=== PATIENT | male | born 1995 | race Caucasian/White ===

== ENCOUNTER 2022-09-02 12:26 | Emergency (ER) | payer BC ==
[2022-09-02] MEDS ORDERED: Lidocaine 1% 5 ML VIAL INJECT ONE (13:29)
[2022-09-02] MEDS ORDERED: Diphtheria,Pertussis(Acell),Tetanus Vaccine 0.5 ML Syringe IM ONE (13:30)
[2022-09-02] MEDS ORDERED: Bacitracin Oint 1 GM U/D Packet TOP ONE (13:52)
== END 2022-09-02 14:18 | disposition home or self-care (01) ==
LOC: LL.ED 12:26
DX: S61.411A Laceration without foreign body of right hand, initial encounter (principal); F17.290 Nicotine dependence, other tobacco product, uncomplicated; Z23 Encounter for immunization; W27.0XXA Contact with workbench tool, initial encounter
CPT/HCPCS: 12001; 90471; 90715; 99282; J3490

== ENCOUNTER 2023-04-26 22:58 | Emergency (ER) | payer BC ==
[2023-04-26 23:54] LABS: BASOPHILS ABSOLUTE AUTO 0.04 K/uL (0.00-0.20); BASOPHILS PERCENT AUTO 0.4 % (0.0-2.0); EOSINOPHILS ABSOLUTE AUTO 0.06 K/uL (0.00-0.50); EOSINOPHILS PERCENT AUTO 0.6 % (0.0-5.0); HEMATOCRIT 45.5 % (39.0-49.0); HEMOGLOBIN 15.2 g/dL (13.1-16.8); LYMPHOCYTES PERCENT AUTO 18.1 % (10.0-50.0); MEAN CORPUSCULAR HEMOGLOBIN 30.8 pg (28.2-33.3); MEAN CORPUSCULAR HGB CONC 33.4 g/dL (31.7-36.0); MEAN CORPUSCULAR VOLUME 92.1 fL (84.0-98.0); MONOCYTES ABSOLUTE AUTO 0.51 K/uL (0.00-1.00); MONOCYTES PERCENT AUTO 5.1 % (2.0-14.0); NEUTROPHILS ABSOLUTE AUTO 7.53 K/uL (1.40-7.00); NEUTROPHILS PERCENT AUTO 75.8 % (45.0-80.0); PLATELET COUNT,PLT 299 K/uL (150-350); RED BLOOD CELL COUNT 4.94 M/uL (4.33-5.41); RED CELL DISTRIBUTION WIDTH 12.7 % (11.2-14.1); WHITE BLOOD CELL COUNT,WBC 9.9 K/uL (4.0-10.2)
[2023-04-27 00:14] LABS: ALANINE AMINOTRANSFERASE,ALT 41 U/L (12-78); ALBUMIN 4.1 g/dL (3.4-5.0); ALKALINE PHOSPHATASE 79 IU/L (46-116); ASPARTATE AMNIOTRANSFERASE,AST 23 U/L (15-37); BILIRUBIN TOTAL 0.3 mg/dL (0.2-1.0); BLOOD UREA NITROGEN,BUN 8 mg/dL (7-18); CALCIUM 8.8 mg/dL (8.5-10.1); CHLORIDE,CL 107 mmol/L (98-107); CREATININE 1.02 mg/dL (0.51-1.17); ETHANOL BLOOD MEDICAL 0.216 g/dL (0.000-0.080); GLUCOSE RANDOM 97 mg/dL (70-99); POTASSIUM,K 4.4 mmol/L (3.5-5.1); PROTEIN TOTAL,TP 8.1 g/dL (6.4-8.2); SODIUM,NA 144 mmol/L (136-145)
[2023-04-27 00:15] LABS: ESTIMATED GFR 103 mL/min (>=60)
[2023-04-27] MEDS ORDERED: Acetaminophen 500 MG Tab PO ONE (00:20)
== END 2023-04-27 00:44 ==
LOC: LL.ED 22:58
DX: S82.892A Other fracture of left lower leg, initial encounter for closed fracture (principal); F17.210 Nicotine dependence, cigarettes, uncomplicated; E66.9 Obesity, unspecified; Z68.41 Body mass index [BMI] 40.0-44.9, adult; W01.198A Fall on same level from slipping, tripping and stumbling with subsequent striking against other object, initial encounter
CPT/HCPCS: 29515; 36415; 73600-LT; 73610-LT; 80053; 80307; 85025; 99284